=== PATIENT | male | born 1995 | race African-American/Black ===

== ENCOUNTER 2020-09-26 10:41 | Emergency (ER) | payer OTHER ==
[2020-09-26] MEDS ORDERED: ACETAMINOPHEN 325 MG TABLET ONE (11:24)
[2020-09-26] MEDS ORDERED: IBUPROFEN 400 MG TAB ONE (11:24)
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
--- NOTE | 2020-09-26 11:58 | RAD REPORT ---
EXAM DESCRIPTION: RAD - Humerus Left - 09/26/2020 11:39 am CLINICAL HISTORY: PAIN COMPARISON: No comparisons FINDINGS: No acute fracture or dislocation seen.
--- NOTE | 2020-09-26 11:58 | RAD REPORT ---
EXAM DESCRIPTION: RAD - Forearm Left - 09/26/2020 11:39 am CLINICAL HISTORY: PAIN COMPARISON: No comparisons FINDINGS: No fracture or dislocation seen.
[2020-09-26 23:25] VITALS: BP 139/75; O2SAT 100
== END 2020-09-26 12:06 | disposition home or self-care (01) ==
LOC: ER 10:41
DX: S50.02XA Contusion of left elbow, initial encounter (principal); S40.012A Contusion of left shoulder, initial encounter; W23.0XXA Caught, crushed, jammed, or pinched between moving objects, initial encounter; Y93.9 Activity, unspecified; Y92.149 Unspecified place in prison as the place of occurrence of the external cause; F31.9 Bipolar disorder, unspecified
CPT/HCPCS: 99284